=== PATIENT | female | born 1945 | race Caucasian/White ===

== ENCOUNTER → 2016-07-13 | Outpatient (CLI) | payer OTHER, MEDICARE ==
--- NOTE | 2016-07-13 11:36 | DIAGNOSTIC IMAGING REPORT ---
RENAL ULTRASOUND CLINICAL HISTORY: Chronic kidney disease. COMPARISON STUDY: None. TECHNIQUE: Sonography of the kidneys and the urinary bladder was performed. FINDINGS: The right kidney measures 10.4 x 4.1 x 4.8 cm and the left measures 10.7 x 5.4 x 4.7 cm. Renal echogenicity is increased. Renal size and cortical thickness are normal. There is no hydronephrosis. There is a 5 mm left renal cyst. There is a possible 3.9 x 2.9 x 3.2 cm mass arising from the midpole of the right kidney. Both ureteral jets were identified. IMPRESSION: 1. No hydronephrosis. 2. Possible 3.9 cm lesion arising from the midpole of the right kidney. It's not clear whether this represents a portion of the kidney or a mass. If adequate renal function, a renal protocol CT is recommended. 3. Increased renal echogenicity suggestive of medical renal disease. Electronically signed by: Lul Turner M.D. 07/13/2016 11:34 AM Dictated Date/Time: 07/13/2016 11:30 AM
== END | disposition home or self-care (01) ==
LOC: C.ULTR 10:41
PROVIDERS: ATTEND Family Medicine
DX: N18.9 Chronic kidney disease, unspecified (principal)

== ENCOUNTER → 2016-07-20 | Outpatient (CLI) | payer OTHER, MEDICARE ==
--- NOTE | 2016-07-21 13:27 | MAMMOGRAPHY REPORT ---
BILATERAL DIGITAL SCREENING MAMMOGRAM WITH CAD: 07/20/2016 CLINICAL HISTORY: Routine screening. Patient has no complaints. TECHNIQUE: Current study was also evaluated with a Computer Aided Detection (CAD) system. Bilateral CC and MLO views were obtained. COMPARISON: Prior screen-film mammogram dated 10/31/2005. BREAST COMPOSITION: There are scattered areas of fibroglandular density in both breasts. FINDINGS: No suspicious masses, calcifications, or areas of architectural distortion are noted in ei ther breast. There has been no significant interval change compared to prior exams. Scattered bilate ral benign-appearing calcifications are not significantly changed. IMPRESSION: ACR BI-RADS CATEGORY 2: BENIGN There is no mammographic evidence of malignancy. A 1 year screening mammogram is recommended. The pa tient will receive written notification of the results. Approximately 10% of breast cancers are not detected with mammography. A negative mammographic report should not delay biopsy if a clinically suggestive mass is present. Antonieta De La Cruz M.D. /:07/21/2016 07:26:35 Sales Manager: Harleen COOPER(Jia)(Kaylyn)([place]), [facility] letter sent: Normal 1/2 BI-RADS Code: ACR BI-RADS Category 2: Benign
--- NOTE | 2016-07-26 12:11 | CODING QUERY MEDICAL NECESSITY ---
SUPPORTING DIAGNOSIS NEEDED A supporting diagnosis is required for the test/procedure performed on this patient in order for us to be reimbursed by the patient's insurance. Please provide a supporting diagnosis for the following test/procedure listed below next to the test name along with your signature. *If there is no additional diagnosis for this patient that would support the following test/procedure please document that below next to the test/procedure. Test(s)/Procedure(s) that require a supporting diagnosis: * DXA, BONE DENSITY AXIAL DIAGNOSIS: Provider Signature: Date: Thank you Bernie [employer] Once completed, please kindly fax back to [phone] For questions please call [phone]
== END | disposition home or self-care (01) ==
LOC: C.MAMM 13:05
PROVIDERS: ATTEND Family Medicine
DX: Z12.31 Encounter for screening mammogram for malignant neoplasm of breast (principal); Z13.820 Encounter for screening for osteoporosis; E28.39 Other primary ovarian failure

== ENCOUNTER → 2017-09-27 | Outpatient (CLI) | payer OTHER, MEDICARE ==
[~2017-09-27] MED LIST: OPTIRAY 320 IV PRN
--- NOTE | 2017-09-27 11:08 | DIAGNOSTIC IMAGING REPORT ---
CT SCAN OF THE ABDOMEN COMBO RENAL MASS PROTOCOL CLINICAL HISTORY: Right renal mass seen by ultrasound. COMPARISON STUDY: Renal ultrasound dated 07/13/2016. TECHNIQUE: Following the IV administration of 116 cc of Optiray 320, CT scan of the abdomen is performed from the lung bases to the pelvic inlet utilizing the renal mass protocol. Images are reviewed in the axial, sagittal, and coronal planes. IV contrast was administered without complication. A dose lowering technique was utilized adhering to the principles of ALARA. CT DOSE: 1744.59 mGycm FINDINGS: Lung bases: The heart is normal in size and without pericardial effusion. There are coronary artery calcifications. Subpleural reticulation is noted at the lung bases. No airspace consolidation or pleural effusion is identified. There is dependent atelectasis. There is a tiny hiatal hernia. Liver: The contrast-enhanced liver is normal in size, contour, and attenuation. There is no intrahepatic biliary ductal dilatation. The hepatic veins and portal veins are patent. Gallbladder: Unremarkable. Spleen: Normal in size and attenuation. Pancreas: Unremarkable. Adrenal glands: There is mild nodular thickening of the adrenal glands. Kidneys: No renal calculi are identified on the unenhanced series. The contrast enhanced kidneys demonstrate cortical atrophy and are without hydronephrosis. The kidneys enhance and excrete symmetrically. There is a 2.8 x 3.3 x 2.8 cm enhancing mass lesion arising exophytically from the posterior interpolar right kidney seen on axial image #151. No additional enhancing mass lesion is identified in either kidney. This abuts the collecting system. The right renal vein is patent. A subcentimeter cortical hypodensity in the left kidney likely represents a cyst but is too small for definitive characterization. There is no evidence of urothelial lesion identified within the renal pelvis bilaterally or along the course of the proximal ureters. Abdominal vasculature: There is advanced atherosclerotic calcification of the abdominal aorta. A small infrarenal abdominal aneurysm measures up to 2.9 cm. 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 This is only partially visualized on image #271 of the postcontrast series. Bowel: There is mild diverticulosis of the visualized colon without CT evidence of acute diverticulitis. There is no evidence of bowel obstruction. Peritoneum: There is no intraperitoneal free air or abdominal ascites. There is a fat-containing umbilical hernia. Lymphadenopathy: None. Skeletal structures: The skeletal structures are osteopenic. Mild degenerative change is noted throughout the lumbar spine. No lytic or blastic lesions are seen. IMPRESSION: 1. There is a 3.3 cm partially exophytic mass lesion arising from the interpolar right kidney as above. This corresponds to the abnormality seen on the 07/13/2016 renal ultrasound and should be considered renal cell carcinoma until proven otherwise. 2. No additional enhancing cortical mass is identified in either kidney. 3. There is no evidence of metastatic disease in the abdomen or pelvis. 4. There is a 2.9 cm infrarenal abdominal aortic aneurysm. 5. 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 This is only partially visualized 6. There is mild diverticulosis of the visualized colon without CT evidence of acute diverticulitis. 7. Additional findings as above. Electronically signed by: Shan Hernandez M.D. 09/27/2017 11:07 AM Dictated Date/Time: 09/27/2017 10:54 AM
== END | disposition home or self-care (01) ==
LOC: C.CTS 10:19
PROVIDERS: ATTEND Family Medicine
DX: R93.429 Abnormal radiologic findings on diagnostic imaging of unspecified kidney (principal); N28.89 Other specified disorders of kidney and ureter; I71.4 Abdominal aortic aneurysm, without rupture; I77.1 Stricture of artery